=== PATIENT | female | born 1950 | race Caucasian/White ===

== ENCOUNTER 2018-10-05 18:40 | Inpatient (IN) | payer OTHER ==
[~2018-10-05] VITALS: Ht 170.2 cm; Wt 74.7 kg
[~2018-10-05 18:40] MED LIST: AMOCLA875 PO; ASPI325; DOXY100 PO; GLIP2.5ER; LISI5; METF850; ROSU10TA; WARF5
[2018-10-05 19:44] LABS: BASOPHILS ABSOLUTE AUTO 0.03 K/mm3 (0.00-0.23); BASOPHILS PERCENT AUTO 1 % (0-2); EOSINOPHILS ABSOLUTE AUTO 0.01 K/mm3 (0.00-0.68); EOSINOPHILS PERCENT AUTO 0 % (0-6); Hematocrit 40.3 % (33.0-51.0); Hemoglobin 12.5 g/dL (11.5-16.0); IMMATURE GRAN ABSOLUTE AUTO 0.01 K/mm3 (0.00-0.10); IMMATURE GRAN PERCENT AUTO 0 % (0-1); LYMPHOCYTES ABSOLUTE AUTO 1.03 K/mm3 (0.84-5.20); LYMPHOCYTES PERCENT AUTO 16 % (21-46); MONOCYTES ABSOLUTE AUTO 0.51 K/mm3 (0.16-1.47); MONOCYTES PERCENT AUTO 8 % (4-13); Mean Corpuscular HGB 30.3 pg (26.0-34.0); Mean Corpuscular Volume 98 fL (80-100); Mean Platelet Volume 11.4 fL (9.1-12.4); NEUTROPHILS PERCENT AUTO 76 % (41-73); Platelet Count 148 K/mm3 (150-400); RDW Coefficient Variation 15.5 % (11.7-14.2); RDW Standard Deviation 55.3 fL (35.1-46.3); Red Blood Cell Count 4.13 M/mm3 (3.80-5.20); White Blood Cell Count 6.59 K/mm3 (4.00-11.30)
[2018-10-05 20:02] LABS: Albumin, Blood 3.2 g/dL (3.4-5.0); Albumin/Globulin Ratio 0.8 (0.8-1.8); Bilirubin, Total 1.2 mg/dL (0.1-1.0); Bun/Creatinine Ratio 17.1 (12.0-20.0); Calcium, Blood 8.7 mg/dL (8.5-10.1); Creatinine, Blood 1.52 mg/dL (0.40-1.00); Globulin, Blood 4.1 g/dL (2.2-4.0); Potassium, Blood 4.3 mmol/L (3.5-5.5); Total Protein, Blood 7.3 g/dL (6.4-8.2); Troponin I 0.033 ng/mL (0.000-0.040)
[2018-10-05] MEDS ORDERED: ERGO400 (22:51)
[2018-10-05 23:56] LABS: Source, Urine Clean Catch
[2018-10-06 00:04] LABS: Bilirubin, Urine Neg (Neg); Blood, Urine 2+ (Neg); Glucose Qualitative, Urine Neg (Neg); Ketones, Urine Neg (Neg); Leukocyte Esterase, Urine 2+ (Neg); Nitrite, Urine Neg (Neg); Protein, Urine 2+ (Neg); Urobilinogen, Urine 1+ (Normal)
[2018-10-06 00:05] LABS: Appearance, Urine Hazy (Clear); Color, Urine Amber (P-Yellow)
[2018-10-06 00:23] LABS: Bacteria Many /hpf; Red Blood Cells, Urine 0-2 /hpf (0-2); Squamous Epithelial Cells Few /hpf (Few); White Blood Cells, Urine 25-50 /hpf (0-5)
[2018-10-06 05:19] LABS: Anion Gap 10 mmol/L (6-16); Blood Urea Nitrogen 27 mg/dL (8-24); Bun/Creatinine Ratio 17.5 (12.0-20.0); CHOL/HDL RATIO 3.9; CO2, Blood 21 mmol/L (21-32); Calcium, Blood 8.4 mg/dL (8.5-10.1); Chloride, Blood 108 mmol/L (98-108); Cholesterol 133 mg/dL (50-200); Creatinine, Blood 1.54 mg/dL (0.40-1.00); Glomerular Filtration Rate 36 (60-); Glucose, Blood 155 mg/dL (70-99); HDL Cholesterol 34 mg/dL (>39); LDL/HDL RATIO 2.2; Low Density Lipoprotein Chol 73 mg/dL (0-110); Potassium, Blood 4.2 mmol/L (3.5-5.5); Sodium, Blood 139 mmol/L (136-145); Triglycerides 128 mg/dL (30-160); Very Low Density Lipoprot Chol 25 mg/dL (6-32)
--- NOTE | 2018-10-06 06:40 | NUR ---
SHIFT SUMMARY PT A&O X4 T/O SHIFT. PT ADMITTED FROM ER THIS SHIFT. FINE INSPIRATORY CRACKLES BILAT; PT DENIES SOB AT REST; RA. PT DENIES NAUSEA AND CP; TELEMETRY IN PLACE; SR WITH OCC PVC'S PER RECEIVING SUPERVISOR. BLE'S ELEVATED T/O SHIFT. PT ABLE TO SHIFT WEIGHT IN BED. PT UP TO BSC WITH GAIT BELT AND SBA. CALL LIGHT IN REACH; PT DEMONSTRATES USE. WCTM UNTIL REPORT TO DAY SHIFT RN.
--- NOTE | 2018-10-06 17:14 | NUR ---
PATIENT A/OX4, UP WITH FWW AND SBA TO RESTROOM. ECHO DONE TODAY AND REVEALED MULTIPLE BLOOD CLOTS IN THE VENTRICLES AND PATIENT WAS STARTED ON A HEPARIN GTT. PATIENT IS TOLERATING DIET, 1500CC FLUID RESTRICTION. 2-3+ EDEMA TO BLE, LASIX GIVEN IV. 20G IV TO L FA WNL. VSS, LUNGS CLEAR/DIM, ON RA. CALM AND COOPERATIVE WITH CARE, CALLS APPROPRIATELY FOR ASSISTANCE.
--- NOTE | 2018-10-07 04:47 | NUR ---
SHIFT SUMMARY PT HAS SLEPT FAIR DURING THE NIGHT, USES BSC PER SELF. HAS BEEN NPO SINCE MIDNIGHT. OFFERS NO C/O'S. NO ACUTE CHANGES NOTED.
[2018-10-07 05:47] LABS: Bun/Creatinine Ratio 18.3 (12.0-20.0); Calcium, Blood 8.2 mg/dL (8.5-10.1); Creatinine, Blood 1.64 mg/dL (0.40-1.00); Magnesium, Blood 1.8 mg/dL (1.6-2.4)
[2018-10-07 05:50] LABS: Thyroid Stimulating Hormone 3.88 uIU/mL (0.360-4.800)
--- NOTE | 2018-10-07 16:07 | NUR ---
TRANSFER PCU 6 PT TRANSFERED TO PCU S/P ANGIOGRAM. BEDSIDE REPORT RECEIVED FROM CATH TEAM. PT ARRIVED BY W/C ACCOMPANIED BY STAFF. PT ALERT AND COMFORTABLE. RIGHT WRIST BOARD ON. CAP REFILL TO RIGHT FINGERS WNL. PT HELPED WITH 2 ASSIST TO BSC. VOIDED X1. HELPED WITH 2 ASSIST TO BED. PT COMPLAINT WITH PROTECTING RIGHT WRIST. BP CUFF LEFT UE. SPO2 RIGHT INDEX FINGER. SAT WITH PLETH AT 100%RA. TX DENIED DISCOMFORT. [facility]. CONTINUE POT.
--- NOTE | 2018-10-07 17:13 | NUR ---
NOTE PT RESTING QUIETLY. SR. SHE'S TALKED WITH FAMILY AND HAD SEVERAL VISITORS. RIGHT RADIAL SITE CD&I. TR BAND INTACT. UP TO BSC WITH 2 ASSIST. RIGHT WRIST BOARD COMBINED WITH HER LEFT SIDED WEAKNESS MAKES IT CHALLENGING FOR HER TO GET UP SIT TO STAND. SHE IS UNABLE TO PUSH UP WITH HER RIGHT ARM. TAKES 2 PEOPLE TO HELP HER. PT DENIED PAIN OR DISCOMFORT. SHE'S HUNGRY. CONTINUE POT.
[2018-10-08 05:06] LABS: BASOPHILS ABSOLUTE AUTO 0.05 K/mm3 (0.00-0.23); BASOPHILS PERCENT AUTO 1 % (0-2); EOSINOPHILS ABSOLUTE AUTO 0.21 K/mm3 (0.00-0.68); EOSINOPHILS PERCENT AUTO 4 % (0-6); Hematocrit 37.5 % (33.0-51.0); IMMATURE GRAN ABSOLUTE AUTO 0.01 K/mm3 (0.00-0.10); IMMATURE GRAN PERCENT AUTO 0 % (0-1); LYMPHOCYTES ABSOLUTE AUTO 1.24 K/mm3 (0.84-5.20); LYMPHOCYTES PERCENT AUTO 24 % (21-46); MONOCYTES ABSOLUTE AUTO 0.39 K/mm3 (0.16-1.47); MONOCYTES PERCENT AUTO 8 % (4-13); Mean Corpuscular HGB 30.5 pg (26.0-34.0); Mean Platelet Volume 11.5 fL (9.1-12.4); NEUTROPHILS PERCENT AUTO 64 % (41-73); Platelet Count 154 K/mm3 (150-400); RDW Coefficient Variation 15.7 % (11.7-14.2); Red Blood Cell Count 3.94 M/mm3 (3.80-5.20)
[2018-10-08 05:07] LABS: Mean Corpuscular Volume 95 fL (80-100)
--- NOTE | 2018-10-08 05:20 | NUR ---
SHIFT SUMMARY. SEE RT WRIST POST CATH CARE DOCUMENTATION. WNL SITE . DENIES ANY PAIN. NOTED SOME SOB W/ EXERTION. BSC. WHICH SHE WAS UP FREQUENTLY ALL NOC. 2 PERSON ASSIST TO PREVENT ANY USE OF RT ARM/HAND/WRIST FOR SUPPORT.ARM BOARD ON AT ALL TIMES AND FOLLOWED IMMOBILIZATION INSTRUCTIONS WELL. MENTATION CLEAR. EXTREME BLE EDEMA. NO REPORT OF ANY ACUTE DISCOMFORT. SR/SB .LOWEST SEEN HR 55. LUNGS CLEAR AND NO O2 NEEDED WNL SATS.
[2018-10-08 05:34] LABS: Bun/Creatinine Ratio 20.8 (12.0-20.0); Calcium, Blood 8.3 mg/dL (8.5-10.1); Creatinine, Blood 1.54 mg/dL (0.40-1.00); Potassium, Blood 4.1 mmol/L (3.5-5.5)
--- NOTE | 2018-10-08 08:00 | NUR ---
pt laying in bed awake a/ox3, pleasant and cooperative with care, follows commands well, denies any complaints of pain, lungs are clear t/o, resp even and unlabored, no cough noted, hrr, tele in place running sb per monitor, see strip, 3-4+ edema noted to b/l le, cap refill <3sec, vs stable, afebrile, iv sites are clear and patent, infusing heperin gtt as ordered, to left fa iv to rfa is s.l., both c/d/i, geovanni sheppard call light in reach, is a two person assist to bsc, parks and recreation manager in to speak with her and changed her status to dnr. call light in reach.
--- NOTE | 2018-10-08 12:48 | NUR ---
pt resting in bed eating lunch, dieticien in to speak with her, vs stable, no needs at this time. call light in reach.
--- NOTE | 2018-10-08 18:26 | NUR ---
pt sat up on the side of the bed for a few hrs today, needed assistance to get her legs back into bed. no acute changes this shift. call light in reach.
[2018-10-09 04:41] LABS: International Normalized Ratio 1.18
[2018-10-09 04:43] LABS: Bun/Creatinine Ratio 21.3 (12.0-20.0); Calcium, Blood 8.2 mg/dL (8.5-10.1); Creatinine, Blood 1.55 mg/dL (0.40-1.00); Magnesium, Blood 1.8 mg/dL (1.6-2.4); Potassium, Blood 4.6 mmol/L (3.5-5.5)
--- NOTE | 2018-10-09 05:58 | NUR ---
SHIFT SUMMARY PT ALERT AND ORIENTED. VS STABLE. PT DENIES ANY CHEST PAIN OR PRESSURE. O2 SATS HAVE REMAINED ABOVE 92% ON RA. PT DISCUSSES HER WISHED TO ONLY BE MEDICALLY MANAGED AND TO GO HOME. RADIAL ACCESS SITE FREE FROM HEMATOMA, N/T, OR BLEEDING. ARM BAND IN PLACE. PT UP TO THE BSC WITH 1 ASSIST MULTIPLE TIMES THROUGHOUT NIGHT. HEPARIN GTT INF PER PHARMACY ORDERS. PT DENIES A NEED FOR ANYTHING AT THIS ITME. CALL LIGHT IN REACH. WILL CONTINUE TO MONITOR AND REPORT TO ONCOMING RN.
[2018-10-09 15:08] LABS: A/G RATIO 0.8 (0.7-1.7); ALBUMIN 2.6 g/dL (2.9-4.4); ALPHA-1-GLOBULIN 0.3 g/dL (0.0-0.4); ALPHA-2-GLOBULIN 0.6 g/dL (0.4-1.0); BETA GLOBULIN 0.9 g/dL (0.7-1.3); GAMMA GLOBULIN 1.3 g/dL (0.4-1.8); GLOBULIN, TOTAL 3.1 g/dL (2.2-3.9); M-SPIKE Not Observed g/dL (Not Observed); PROTEIN, TOTAL, SERUM 5.7 g/dL (6.0-8.5)
--- NOTE | 2018-10-09 18:08 | NUR ---
SHIFT SUMMARY PT RESTING IN BED THROUGHOUT THE DAY. VSS. ALERT AND ORIENTED X3. DENIES PAIN THE MAJORITY OF THE DAY, C/O CHEST PAIN FOR A SHORT PERIOD OF TIME, DID NOT NOTIFY RN UNTIL AN HOUR LATER. DR. NEUMANN NOTIFIED OF CP, ORDERS RECEIVED FOR TROPONIN I NOW AND IN AM. EDUCATED PT ON THE NEED TO NOTIFY STAFF RIGHT AWAY IF SHE HAS CHEST PAIN AGAIN, PT VERBALIZES UNDERSTANDING. LUNG SOUNDS CLEAR, SINUS BRADYCARDIA / NSR RATE 50s-60s PER TELE. 2+ PITTING EDEMA TO BLE, PER PT, SWELLING TO LEGS IS IMPROVING. WILL CONTINUE TO MONITOR.
--- NOTE | 2018-10-09 22:11 | NUR ---
ASSUMED CARE OF PATIENT AT APPROXIMATELY 1905 FROM ANSON Erickson RN. PATIENT ALERT AND ORIENTED X4. REPORTED THAT PATIENT IS ONE ASSIST TO BEC; REPORTED THAT SHE CALLS APPROPRIATELY. PATIENT DENIES CP/PRESSURE, PAIN ELSEWHERE, NAUSEA OR DIZZINESS. NSR W/ PVC'S ON TELE; OXYGEN SATURATION ABOVE 90% ON ROOM AIR. RIGHT RADIAL ANGIO SITE WNL; WOUNDS NOTED ON FEET; +2-3 EDEMA NOTED ON BLE. HEPARIN INFUSING PER ORDER. PATIENT ATTEMPTED TO AMBULATE INDEPENDENTLY; REPORTED THAT SHE DOESNT UNDERSTAND WHY SHE NEEDS ASSISTANCE WHEN SHE GETS UP BECAUSE SHE GETS UP AT HOME BY HERSELF; REPORTS FRUSTRATION; AGREED TO CALL BEFORE AMBULATION; REPORTED SHE "WILL STAND UP EVERY FIVE MINUTES" TO TRIGGER ALARM; THEN REPORTED THAT SHE GETS IRRITABLE AFTER BEING IN THE HOSPITAL THIS LONG. PATIENT IS STEADY ON FEET; STOOD BEDSIDE WHILE THIS RN CHANGED THE BEDDING. PATIENT CURRENTLY RESTING IN BED; CALL LIGHT IN REACH; BED IN LOWEST POSISTION; BED ALARM ON; WILL CONTINUE TO MONITOR AND ASSESS UNTIL END OF SHIFT.
[2018-10-10 04:33] LABS: International Normalized Ratio 1.12; Prothrombin Time Results 11.5 Sec (9.7-11.5)
[2018-10-10 04:36] LABS: Bun/Creatinine Ratio 25.4 (12.0-20.0); Calcium, Blood 8.2 mg/dL (8.5-10.1); Creatinine, Blood 1.42 mg/dL (0.40-1.00); Potassium, Blood 4.4 mmol/L (3.5-5.5); Troponin I 0.019 ng/mL (0.000-0.040)
[2018-10-10 04:37] LABS: Bun/Creatinine Ratio 26.1 (12.0-20.0); Calcium, Blood 8.3 mg/dL (8.5-10.1); Creatinine, Blood 1.42 mg/dL (0.40-1.00); Potassium, Blood 4.4 mmol/L (3.5-5.5)
--- NOTE | 2018-10-10 06:11 | NUR ---
PATIENT CALLED APPROPRIATELY T/O REST OF NIGHT. ATTENDS PLACED; INCONTINENT OF STOOL SMEARS. PATIENT STOOD FOR WEIGHT THIS MORNING. VSS. NO ACUTE CHANGES TO REPORT. WILL CONTINUE TO MONITOR AND ASSESS UNTIL END OF SHIFT.
--- NOTE | 2018-10-10 10:45 | NUR ---
Assumed Care: Assumed care of pt at approx 0700. VSS. In no apparent sign of distress. Pt is A&Ox4. Calls appropriately and repositions self. Denies any pain. See shift assessment for detailed assessment. Dr. Coleman at bedside this AM and states that she will be adjusting some of her BP meds. Dr. Coleman discussed with patient her options to follow-up as outpatient in [place] for bypass surgery. Verified heparin gtt at bedside with demetrice lin RN this AM. Pt currently resting in bed with call light within reach. Denies any further questions, complaints or requests at this time. Will continue to monitor.
[2018-10-10 12:09] LABS: M-SPIKE, % Not Observed % (Not Observed)
--- NOTE | 2018-10-10 19:19 | NUR ---
Shift Summary No acute changes since initial shift assessment. VSS. In no apparent sign of distress. Pt is A&Ox4. Calls appropriately. Denies any pain. Pt denies any acute complaints or events t/o the shift. No acute changes on tele. Pt started on coumadin tonight. No adjustments required on heparin gtt today per pharmacy. Pt currently resting in bed with call light within reach. Denies any further questions, complaints or requests at this time. Will continue to monitor until report is given to noc shift RN.
--- NOTE | 2018-10-10 23:15 | NUR ---
ASSUMED CARE OF PATIENT AT APPROXIMATELY 1905 FROM ERVIN Gibbs RN. PATIENT ALERT AND ORIENTED X4. PATIENT IS SBA TO BEDSIDE COMMODE; CALLS APPROPRIATELY. PATIENT DENIES CP/PRESSURE, PAIN ELSEWHERE, NAUSEA OR DIZZINESS. NSR W/ PVC'S ON TELE; OXYGEN SATURATION ABOVE 90% ON ROOM AIR. RIGHT RADIAL ANGIO SITE WNL; WOUNDS NOTED ON FEET; EDEMA NOTED ON BLE; IMPROVING. HEPARIN INFUSING PER ORDER. PATIENT CURRENTLY RESTING IN BED; CALL LIGHT IN REACH; BED IN LOWEST POSISTION; BED ALARM ON; WILL CONTINUE TO MONITOR AND ASSESS UNTIL END OF SHIFT.
[2018-10-11 04:18] LABS: International Normalized Ratio 1.36; Prothrombin Time Results 13.8 Sec (9.7-11.5)
[2018-10-11 04:24] LABS: Bun/Creatinine Ratio 26.6 (12.0-20.0); Calcium, Blood 8.2 mg/dL (8.5-10.1); Creatinine, Blood 1.39 mg/dL (0.40-1.00); Magnesium, Blood 1.9 mg/dL (1.6-2.4); Potassium, Blood 4.2 mmol/L (3.5-5.5)
--- NOTE | 2018-10-11 06:27 | NUR ---
NO ACUTE CHANGES TO REPORT. PATIENT SLEPT ABOUT FOUR HOURS LAST NIGHT. VSS. WILL CONTINUE TO MONITOR AND ASSESS UNTIL END OF SHIFT.
--- NOTE | 2018-10-11 18:26 | NUR ---
Shift Summary No acute changes since initial shift assessment. VSS t/o shift. Denies any pain or any complaints t/o the shift. No acute events on tele. Pt has remained on RA. Pt currently resting in bed with call light within reach. Denies any furhter questions, complaints or requests at this time. Will continue to monitor until report is given to destinee TERAN.
[2018-10-12 04:39] LABS: International Normalized Ratio 1.81
[2018-10-12 04:45] LABS: Bun/Creatinine Ratio 26.2 (12.0-20.0); Calcium, Blood 8.5 mg/dL (8.5-10.1); Creatinine, Blood 1.45 mg/dL (0.40-1.00); Magnesium, Blood 2.1 mg/dL (1.6-2.4); Potassium, Blood 4.3 mmol/L (3.5-5.5)
--- NOTE | 2018-10-12 07:42 | NUR ---
SHIFT SUMMARY PATIENT VERY PLEASENT AND COOPERATIVE THROUGHOUT THE NIGHT. PATIENT DENIED ANY PAIN OR DISCOMFORT LAST NIGHT. HEPARIN GTT RUNNING PER ORDERS. PT APPEARED TO SLEEP WELL THROUGHOUT THE NIGHT. VITAL SIGNS CHARTED. REPORT GIVEN TO ONCOMING RN.
--- NOTE | 2018-10-12 17:25 | NUR ---
END OF SHIFT; PT HAD NO ACUTE CHANGES IN CONDITION NOTED DURING DAY. SHE HAS PLEASANT AFFECT. DENIES ANY CHEST PAIN OR DISCOMFORT. PT ABLE TO TRANSFER HERSELF TO AND FROM COMMODE WITHOUT ASSIST. SHE USES HER CALL LIGHT APPROPRIATELY TO CALL FOR ASSISTANCE WHEN NEEDED. SHE REMAINS ON A HEPARIN DRIP AT 15UNITS/KG/HR OR 24 MLS. WILL CONTINUE TO MONITOR THIS PATIENT UNTIL REPORT AND HAND OFF TO NOC SHIFT RN.
--- NOTE | 2018-10-12 23:40 | NUR ---
EVENT NOTE: AT APPROX 2232 PATIENT HAD A SIX BEAT RUN OF VTACH. PATIENT APPEARED ASYMPTOMATIC WHEN STAFF CHECKED ON PATIENT. RHYTHM STRIP PRINTED AND PLACED IN CHART.
[2018-10-13 04:25] LABS: International Normalized Ratio 2.26; Prothrombin Time Results 22.2 Sec (9.7-11.5)
[2018-10-13 04:45] LABS: Bun/Creatinine Ratio 29.2 (12.0-20.0); Calcium, Blood 8.4 mg/dL (8.5-10.1); Creatinine, Blood 1.44 mg/dL (0.40-1.00); Potassium, Blood 4.6 mmol/L (3.5-5.5)
--- NOTE | 2018-10-13 06:53 | NUR ---
SHIFT SUMMARY: PATIENT PLEASENT AND COOPERATIVE THROUGHOUT THE NIGHT. PATIENT APPEARED TO SLEEP WELL. HEPARIN GTT RUNNING PER ORDERS. PATIENT HAS BEEN ABLE TO TRANSFER SELF FROM THE BED TO THE BSC AND BACK WITHOUT ASSISTANCE. PATIENT STATES SHE THINKS THE SWELLING IN HER LEGS IS "SO MUCH BETTER" THAN WHEN SHE GOT HERE. VITAL SIGNS CHARTED. WILL CONTINUE TO MONITOR PATIENT AND REPORT TO ONCOMING RN.
--- NOTE | 2018-10-13 16:09 | NUR ---
PT AMBULATES AROUND PCU AND ICU AREA WITH MINIMAL DISCOMFORT. RETURNS TO ROOM EXPRESSES THAT SHE IS FEELING TIRED AFTER HER WALK BUT LOOKING FORWARD TO WALKING MORE OFTEN. HEPARIN DRIP IS STOPPED THIS AFTERNOON PER PHARMACY ORDER. IV IS NOW SALINE LOCKED. PT IS ABLE TO TRANSFER TO AND FROM BEDSIDE COMMODE FOR HER CONVENIENCE. SHE HAS GOOD APPETITE DURING DAY AND EXPRESSES NO SOB HAS PLEASANT AFFECT. PER EUFEMIA SHE IS LOOKING FORWARD TO GOING HOME TOMORROW.
[2018-10-14 04:40] LABS: Bun/Creatinine Ratio 31.5 (12.0-20.0); Calcium, Blood 8.5 mg/dL (8.5-10.1); Creatinine, Blood 1.49 mg/dL (0.40-1.00); International Normalized Ratio 2.38; Magnesium, Blood 2.1 mg/dL (1.6-2.4); Potassium, Blood 4.5 mmol/L (3.5-5.5); Prothrombin Time Results 23.3 Sec (9.7-11.5)
--- NOTE | 2018-10-14 05:31 | NUR ---
SHIFT SUMMARY PATIENT PLEASENT AND COOPERATIVE THROUGHOUT THE NIGHT. PATIENT APPEARED TO NAP WELL ON AND OFF THROUGHOUT THE NIGHT. NO COMPLAINTS OF PAIN OR DISCOMFORT NOTED LAST NIGHT. VITAL SIGNS CHARTED. WILL CONTINUE TO MONITOR PATIENT AND REPORT TO ONCOMING RN.
[2018-10-14] MEDS ORDERED: ATOR40TA PO (10:52)
[2018-10-14] MEDS ORDERED: ASPI81CH PO (10:52)
[2018-10-14] MEDS ORDERED: LISI5 PO (10:53)
[2018-10-14] MEDS ORDERED: Micro-K10 MEQ PO (10:54)
[2018-10-14] MEDS ORDERED: METO25ER PO (10:54)
[2018-10-14] MEDS ORDERED: TORSE20 PO (10:56)
[2018-10-14] MEDS ORDERED: WARF5 PO (10:57)
--- NOTE | 2018-10-14 12:05 | NUR ---
Shift Summary Pt discharged at 1200. VSS. In no apparent sign of distress. Pt denied any acute events or complaints t/o the night and at time of discharge. See shift assessment for detailed assessment. Pt discharged via wheelchair and accompanied by escort services and son with all belongings in hand and discharge instructions/prescriptions.
== END 2018-10-14 12:01 | disposition home or self-care (01) | DRG 286 ==
LOC: ER 18:40 → PCU 21:28 → MEDS 21:28 → PCU 10-07 14:58
PROVIDERS: Emergency Medicine; Hospitalist; Internal Medicine; Internal Medicine Cardiovascular Disease; ADMIT Internal Medicine
PROC: B2111ZZ Fluoroscopy of Multiple Coronary Arteries using Low Osmolar Contrast (ICD-10-PCS; principal; 2018-10-07)
DX: I13.0 Hypertensive heart and chronic kidney disease with heart failure and stage 1 through stage 4 chronic kidney disease, or unspecified chronic kidney disease (principal); I50.21 Acute systolic (congestive) heart failure; Q21.1 Atrial septal defect; I69.354 Hemiplegia and hemiparesis following cerebral infarction affecting left non-dominant side; N18.4 Chronic kidney disease, stage 4 (severe); E78.5 Hyperlipidemia, unspecified; Z89.422 Acquired absence of other left toe(s); Z87.891 Personal history of nicotine dependence; I51.3 Intracardiac thrombosis, not elsewhere classified; I25.10 Atherosclerotic heart disease of native coronary artery without angina pectoris; E11.22 Type 2 diabetes mellitus with diabetic chronic kidney disease; Z66 Do not resuscitate; R19.7 Diarrhea, unspecified; Z79.82 Long term (current) use of aspirin; Z79.01 Long term (current) use of anticoagulants
CPT/HCPCS: 36415; 71046; 80048; 80053; 80061; 81001; 82728; 83036; 83735; 83880; 84156; 84165; 84166; 84443; 84484; 85025; 85049; 85347; 85610; 85730; 87077; 87086; 87186; 93005; 93010; 93306; 93454; 96374; 97161; 97165; 97530; 98960; 99152; 99153; 99285-25; C1769; C1894; G8987; G8988; G8989; J1644; J1650; J1940; J2250; J3475; J7030; Q9967

== ENCOUNTER 2019-02-12 08:43 | Inpatient (IN) | payer SELFPAY ==
[~2019-02-12] VITALS: Ht 170.2 cm; Wt 65.4 kg
[~2019-02-12 08:43] MED LIST changes: +ASPI81CH PO; +ATOR40TA PO; +ERGO400; +LISI5 PO; +METO25ER PO; +Micro-K10 MEQ PO; +TORSE20 PO; +WARF5 PO
[2019-02-12 09:35] LABS: Hematocrit 36.1 % (33.0-51.0); Hemoglobin 11.1 g/dL (11.5-16.0); Mean Corpuscular HGB 31.4 pg (26.0-34.0); Mean Corpuscular HGB Conc 30.7 g/dL (31.5-36.5); Mean Corpuscular Volume 102 fL (80-100); Mean Platelet Volume 10.9 fL (9.1-12.4); Platelet Count 177 K/mm3 (150-400); RDW Coefficient Variation 14.2 % (11.7-14.2); RDW Standard Deviation 53.4 fL (35.1-46.3); Red Blood Cell Count 3.53 M/mm3 (3.80-5.20); White Blood Cell Count 13.92 K/mm3 (4.00-11.30)
[2019-02-12 09:51] LABS: International Normalized Ratio 1.51; Prothrombin Time Results 15.4 Sec (9.7-11.5)
[2019-02-12 09:56] LABS: Alanine Aminotransfer (ALT/SGP 33 U/L (12-78); Albumin, Blood 2.9 g/dL (3.4-5.0); Albumin/Globulin Ratio 0.7 (0.8-1.8); Alk Phos 109 U/L (50-136); Anion Gap 18 mmol/L (6-16); Aspartate Aminotrans (AST/SGOT 29 U/L (12-37); Bilirubin, Total 1.7 mg/dL (0.1-1.0); Blood Urea Nitrogen 70 mg/dL (8-24); CO2, Blood 16 mmol/L (21-32); Calcium, Blood 9.4 mg/dL (8.5-10.1); Chloride, Blood 102 mmol/L (98-108); Creatinine, Blood 2.92 mg/dL (0.40-1.00); Globulin, Blood 4.2 g/dL (2.2-4.0); Glomerular Filtration Rate 17 (60-); Glucose, Blood 109 mg/dL (70-99); Potassium, Blood 4.9 mmol/L (3.5-5.5); Sodium, Blood 136 mmol/L (136-145); Total Protein, Blood 7.1 g/dL (6.4-8.2); Troponin I <0.015 ng/mL (0.000-0.040)
[2019-02-12 10:08] LABS: BAND PERCENT MAN 15 % (0-8); BASOPHILS PERCENT MAN 0 % (0-2); EOSINOPHILS ABSOLUTE MAN 0.13 K/mm3 (0.00-0.68); EOSINOPHILS PERCENT MAN 1 % (0-6); LYMPHOCYTES ABSOLUTE MAN 0.27 K/mm3 (0.84-5.20); LYMPHOCYTES PERCENT MAN 2 % (21-46); METAMYELOCYTE ABSOLUTE MAN 0.27 K/mm3 (0.00-0.00); METAMYELOCYTE PERCENT MAN 2 % (0-0); MONOCYTES ABSOLUTE MAN 0.69 K/mm3 (0.16-1.47); MONOCYTES PERCENT MAN 5 % (4-13); MYELOCYTE ABSOLUTE MAN 0.13 K/mm3 (0.00-0.00); MYELOCYTE PERCENT MAN 1 % (0-0); NEUTROPHILS ABSOLUTE MAN 12.38 K/mm3 (1.96-9.15); SEG NEUTROPHILS PERCENT MAN 74 % (41-73); TOTAL CELLS COUNTED 100
--- NOTE | 2019-02-12 11:04 | NUR ---
"DAY SURGERY | PATIENT TO OR This RN and Mallika RN prepared patient for surgery. Levophed started by ED nurse, titrated 20 mcg. 2 L NS given by ER. LR started to pressure bag wide open. Dr. Arevalo spoke with patient, consent signed. Blood consent obtained, patient verbalized consent. Consent obtained for anesthesia by verbal consent, Dr. Moody in room. Consent for student to be in room verbalized. Patient taken emergently to OR [address] Moody and Mallika TERAN."
[2019-02-12 11:14] LABS: PCO2 Arterial 36.4 mmHg (35-45)
[2019-02-12 11:17] LABS: pH Blood Arterial 7.01 (7.35-7.45)
--- NOTE | 2019-02-12 11:22 | NUR ---
02/12/19 1122 Dayday [place] PATIENT ARRIVED FROM ER FOR EMERGENT AKA. IV INFUSING LEVOPHED. PATIENTS UNDERWARE CUT OFF AND DISPOSED OF. ART LINE STARTED PER DR. STALLINGS AND 18 G PLACED IN RIGHT UPPER ARM. SEE ANESTHESIA RECORD FOR MEDICATIONS. PATIENT RECEIVED PRE-OP ANTIBIOTICS IN ER.
[2019-02-12 13:02] LABS: Hematocrit 33.9 % (33.0-51.0); Hemoglobin 10.4 g/dL (11.5-16.0); Mean Corpuscular HGB 31.8 pg (26.0-34.0); Mean Corpuscular HGB Conc 30.7 g/dL (31.5-36.5); Mean Corpuscular Volume 104 fL (80-100); Mean Platelet Volume 11.1 fL (9.1-12.4); Platelet Count 212 K/mm3 (150-400); RDW Coefficient Variation 14.1 % (11.7-14.2); Red Blood Cell Count 3.27 M/mm3 (3.80-5.20)
[2019-02-12 13:29] LABS: Albumin, Blood 2.3 g/dL (3.4-5.0); Albumin/Globulin Ratio 0.6 (0.8-1.8); Bilirubin, Total 1.8 mg/dL (0.1-1.0); Bun/Creatinine Ratio 24.7 (12.0-20.0); Calcium, Blood 8.1 mg/dL (8.5-10.1); Creatinine, Blood 2.55 mg/dL (0.40-1.00); Globulin, Blood 3.7 g/dL (2.2-4.0); Magnesium, Blood 1.9 mg/dL (1.6-2.4); Phosphorus, Blood 4.2 mg/dL (2.5-4.9); Potassium, Blood 4.7 mmol/L (3.5-5.5); Troponin I 0.023 ng/mL (0.000-0.040)
[2019-02-12 13:59] LABS: BAND PERCENT MAN 16 % (0-8); BASOPHILS PERCENT MAN 1 % (0-2); EOSINOPHILS PERCENT MAN 1 % (0-6); METAMYELOCYTE ABSOLUTE MAN 1.03 K/mm3 (0.00-0.00); METAMYELOCYTE PERCENT MAN 5 % (0-0); MONOCYTES PERCENT MAN 1 % (4-13); NEUTROPHILS ABSOLUTE MAN 19.04 K/mm3 (1.96-9.15); SEG NEUTROPHILS PERCENT MAN 76 % (41-73); TOTAL CELLS COUNTED 100
[2019-02-12 15:34] LABS: PCO2 Arterial 25.3 mmHg (35-45)
[2019-02-12 15:35] LABS: pH Blood Arterial 7.24 (7.35-7.45)
--- NOTE | 2019-02-12 17:26 | NUR ---
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 PT IS INTUBATED AND VENTED AT THIS TIME. R FOOT LEG BKA HAS A WOUND VAC WITH VERY GOOD SEAL. R LEG BKA TISSUE AT THE INNER UPPER THIGH HAS SLIGHT MOTTLING NOTED. PT IS NOT RESPONSIVE. 1250-PT WAS MEDICATED WITH 25MCG OF FENTANYL FOR CENTRAL LINE PLACEMENT. PLACED OG TUBE AFTER CENTRAL LINE PLACED. 1315-PT IS HYPOTENSIVE. STARTED LEVOPHED DRIP @ 5 MCG/KG/MIN. 1330-PT STARTED WAKING UP AT THIS TIME. PT OPENS EYES TO VOICE. PT IS SOMEWHAT FOLLOWING COMMANDS. 1356-PT IS STARTED TO BECOME HYPOTENSIVE AGAIN, INCREASED LEVOPHED DRIP TO 10MCG/KG/MIN. 1430-PT'S FAMILY AT BEDSIDE. UPDATED THEM OF PT'S STATUS. 1525- INCREASED LEVOPHED DRIP TO 15 MCG/KG/MIN. DECREASED BP AGAIN. PT IS WAKING UP SLIGHTLY DESPITE LITTLE DOSE TO PROPOFOL WHICH IS STILL @ 5 MCG/KG/MIN. PT IS DESATTING AT TIMES. CURRENT FIO2 @ 80% 1535-NOTED INCREASED MOTTLE AT POST BKA STUMP. DR. MONIQUE CAME BY TO SEE PT. SHOWED HIM THE INCREASED MOTTLING OF THE TISSUE. HE CALLED DR. AREVALO REGARDING THIS. 1600-INCREASED LEVOPHED DRIP TO 20 MCG/KG/MIN AT THIS TIME. SINCE PT'S BLOOD PRESSURE IS DECLINING. DR. AREVALO WITH DR. MONIQUE NOW AT BEDSIDE. PT IS SOMEWHAT AWAKE, FOLLOWING COMMANDS. NODDING/SHAKING HEAD TO YES/NO QUESTION. DR. AREVALO EXPLAINED TO PT'S SON AND EX- REGARDING PT'S CONDITION. PT IS MOSTLY AWAKE DURING THE CONVERSATION. 1630-PT WAS WIDE AWAKE TO SAY THAT SHE WANTS TO BE DNR. CONTINUE WITH THE CURRENT TREATMENT. 1655-PT STATED SHE IS HURTING AT HER R LEG STUMP. MEDICATED PT WITH PAIN. 1700-PT IS SLEEPING AT THIS TIME. STILL ON LEVOPHED @ 20MCG/KG/MIN. PROPOFOL STILL @ 5 MCG/KG/MIN. PT SEEMS TO BE COMFORTABLE AT THIS TIME.
[2019-02-12 17:29] LABS: PO2 Arterial >500 mmHg (80-100)
--- NOTE | 2019-02-12 19:15 | NUR ---
ASSUMPTION OF CARE Pt is intubated and mildly sedated, opening eyes spontaneously and following commands. Pt denies pain, propofol increased at this time to make pt more comfortable (See flowsheet). Vent is set to AC 24/450/60%/5, O2 at 100%, HR 110-120's SIT, BP stable. Central line to Rt IJ infusing epinephrine, levophed, propofol, vasopressin, heparin, and LR, see flowsheet for rates. Heparin rate/dose weight verified with EMAR and second RN. Arterial line to left radial, site within normal limits, distal extremity cool, slightly cyanotic and slow cap refill. Site and extremity assessed with arsalan RN, no significant changes to extremity noted. Will continue to monitor arterial site and limb closely. Hamm catheter in place, no urine output at this time, Dr. Isabel aware. Rt AKA stump with woundvac in place, dressing sealed and intact, continuous suction set to 125mmHg, scant sanguinous drainage in tube. Purple nonblanching discoloration noted to anterior distal stump skin, margins outlined by arsalan TERAN, Dr Arevalo and Dr Herrera aware. Diffuse sores noted to Lt leg and Rt arm (see photos). Will continue to monitor vital signs closely, medications will be titrated appropriately.
--- NOTE | 2019-02-13 00:27 | NUR ---
POSITIVE BLOOD CULTURE Dr Isabel notified of positive blood cultures, gram positive with cocci in chains, BP 90-100's systolic with MAPs 65-70, urine output 10-15mL so far this shift with levophed running at 20mcg/min and epinephrine at 4mcg/kg/min. No new orders at this time.
[2019-02-13 04:45] LABS: Hematocrit 37.8 % (33.0-51.0); Mean Corpuscular HGB 31.6 pg (26.0-34.0); Mean Corpuscular HGB Conc 29.1 g/dL (31.5-36.5); Mean Platelet Volume 10.9 fL (9.1-12.4); NRBC ABSOLUTE 0.03 K/mm3 (0.00-0.02); NRBC Auto 0.1 /100 WBC (0.0-0.2); Platelet Count 195 K/mm3 (150-400); RDW Coefficient Variation 14.6 % (11.7-14.2); RDW Standard Deviation 58.1 fL (35.1-46.3); Red Blood Cell Count 3.48 M/mm3 (3.80-5.20); White Blood Cell Count 36.81 K/mm3 (4.00-11.30)
[2019-02-13 04:57] LABS: Mean Corpuscular Volume 109 fL (80-100)
[2019-02-13 05:01] LABS: Vancomycin, Random 14.7 ug/mL
[2019-02-13 05:05] LABS: Troponin I 0.329 ng/mL (0.000-0.040)
[2019-02-13 05:10] LABS: BAND PERCENT MAN 17 % (0-8); BASOPHILS PERCENT MAN 0 % (0-2); EOSINOPHILS PERCENT MAN 0 % (0-6); LYMPHOCYTES ABSOLUTE MAN 0.36 K/mm3 (0.84-5.20); LYMPHOCYTES PERCENT MAN 1 % (21-46); MONOCYTES ABSOLUTE MAN 1.47 K/mm3 (0.16-1.47); MONOCYTES PERCENT MAN 4 % (4-13); MYELOCYTE ABSOLUTE MAN 0.36 K/mm3 (0.00-0.00); MYELOCYTE PERCENT MAN 1 % (0-0); SEG NEUTROPHILS PERCENT MAN 77 % (41-73); TOTAL CELLS COUNTED 100
[2019-02-13 05:25] LABS: Bun/Creatinine Ratio 23.4 (12.0-20.0); Calcium, Blood 7.8 mg/dL (8.5-10.1); Creatinine, Blood 2.86 mg/dL (0.40-1.00); Potassium, Blood 6.1 mmol/L (3.5-5.5)
--- NOTE | 2019-02-13 06:34 | NUR ---
Shift Summary: Pt remains intubated and sedated, vent set to 24/450/25%/5, O2 100%, HR 110-120's SIT, BP stable at 90-100's systolic and MAP's 65-70's. Pt rousable and follows commands with decreased sedation. Central line in place at Rt IJ, infusing propofol, vancomycin, NS, levophed, epinephrine, vasopressin, bicarb, heparin, and calcium gluconate. Hamm catheter in place, 25mL of urine output for this shift. Woundvac sealed and intact to Rt AKA stump, draining scant serosanguineous fluid. Purple discoloration to distal stump increased laterally, with no proximal advancements, new margins outlined. Upper extremities are cool and cyanotic with weak radial pulses. Call placed to Dr Isabel @ approx 0530 regarding morning labs/I&O: Lactic- 12.3 Potassium- 6.1 CO2- 8 Troponin- 0.329 WBC- 36.81 (See critical lab value notify) New orders of IV insulin, 1 amp D50, 1L NS, IV Bicarb, and Calcium gluconate initiated.
[2019-02-13 07:23] LABS: PCO2 Arterial 22.4 mmHg (35-45); PO2 Arterial 135 mmHg (80-100); pH Blood Arterial 7.06 (7.35-7.45)
--- NOTE | 2019-02-13 10:30 | NUR ---
0700-ASSUMED CARE OF PT. PT IS INTUBATED AND SEDATED WITH PROPOFOL AT 20MCG/KGMIN. PT IS ON LEVOPHED @ 20MCG/KG/MIN. VASOPRESSIN @ 0.04 UNITS/HR, EPINEPHRINE DRIP @ 4MCG/KG/MIN. R BKA STUMP MOTTLING HAS STABILIZED. LEFT LEG IS MORE MOTTLED AND SO ARE PT'S FINGERS. 0750-DR. GRECO WAS CALLED REGARDING PT'S BLOOD GAS RESULTS. ORDERS RECEIVED. 0800-EPI DRIP @ 10MCG/KG/MIN AT THIS TIME. 1030-PT SEEN BY DR. GRECO. SHE WAS ABLE TO TALK TO PATIENT'S SON REGARDING PT'S PROGNOSIS.
--- NOTE | 2019-02-13 11:23 | NUR ---
Clinical Visit/Family Contact Visit: Reviewed chart, notes, labs, meds. Spoke to Padmini Mcgowan, nurse. She states that there are more family members coming this afternoon. It is expected that family will make the decision to move towards extubation and comfort care. Prognosis is poor. Zeus, son, is at bedside and verbalizes understanding of poor prognosis. He states that pt would not have liked the vent and would not want life saving measures at this point due to lack of quality of life. Zeus reports that he will be discussing end of life care with family this afternoon when they arrive. He is aware that he is the decision maker. Will return to room when family arrives to discuss plan and next steps. Pt will likely demise in the hospital post extubation, is the general understanding of this situation as it has been presented.
[2019-02-13 11:48] LABS: PCO2 Arterial 20.2 mmHg (35-45); PO2 Arterial 157 mmHg (80-100)
[2019-02-13 11:50] LABS: pH Blood Arterial 7.14 (7.35-7.45)
--- NOTE | 2019-02-13 12:00 | NUR ---
PT WAS SEEN BY Nickolas AREVALO AND DR. MONIQUE. UPDATED THEM OF PT'S STATUS. THEY BOTH LOOKED UP PT'S LEFT LEG WHICH IS VERY MOTTLED. THEY EXPLAINED THE PROGNOSIS OF THE PT'S SON STATED [place]. HE STATED NO MORE SURGERY PER PATIENT'S WISHES.
--- NOTE | 2019-02-13 13:45 | NUR ---
PT'S FAMLY AT BEDSIDE, PT'S FAMILY HAS DECIDED PT TO MAKE PT COMFORT CARE. DR. GRECO WAS NOTIFIED REGARDING PT'S FAMILY WISHES.
--- NOTE | 2019-02-13 13:54 | NUR ---
Family Meeting Visit: Met with family in room. After some discussion, the decision was made by Zeus to withdraw life saving measures. Body donation was discussed: pt would likely want her body donated, per pt's brother. Padmini reviewed order of events with family. They verbalize understanding of directions. No other concerns, program aide notified and family requested visit for prayer.
--- NOTE | 2019-02-13 14:26 | NUR ---
1419- PT WAS EXTUBATED AT THIS TIME.
--- NOTE | 2019-02-13 14:39 | NUR ---
Withdrawal of Life Support: Pt was extubated after she was placed on comfort care. Extubation went well, pt premedicated for pain and anxiety. She is currently resting comfortably in bed with family surrounding her. Padmini educated on end of life symptoms and reviewed medication. Padmini instructed on moving pt to quiet room if needed. Instructed family to gather and tell stories, converse respectfully, say their goodbyes and tell her that they love her. Instructed on playing pt's favorite music, maintaining comfortable environment, and providing loving touch; depending on family comfort. The sisters present are current caregivers and have seen pt's passing before. The son has not been exposed to end of life, however, he verbalizes understanding of instruction. Provided family with chairs for all members present, encourged to interact. Door and curtain shut for privacy. Pt appears comfortable. She does not show symptoms or signs of pain or anxiety. Some secretions can be heard, but does not appear to bother the pt. Pt repositioned. Will remain available.
--- NOTE | 2019-02-13 14:41 | NUR ---
Spiritual care visit conducted. I was notified by Mony Hobson that patient's family was requesting a kettle skimmer because patient was going to be extubated soon. The extubation process made not begun when I entered the room and so I spent time with the family having them share memories that were meaningful or were examples of patient's personality. There was much laughter and tears. I also provided prayer for the patient and for the family. I was present for the extubation and providing a calming presence. When the extubation was complete and the patient was cleaned and all wires and tubes removed I provided another prayer. Family voiced appreciation for my visit. I remain available to family.
--- NOTE | 2019-02-13 15:28 | NUR ---
Nickolas COSTA & DR. GRECO WAS NOTIFIED REGARDING PT'S TIME OF EXPIRATION. TRIED TO CALL DR AREVALO AND DR. MONIQUE TO LET THEM KNOW PT HAS , NO ANSWER. [employer] WAS ALSO CONTACTED. PT HAS BEEN DENIED FOR ORGANS, TISSUE & EYES.
--- NOTE | 2019-02-13 15:47 | NUR ---
Spiritual care visit conducted. I met with family of patient shortly after time of . They all seemed to be grieving appropriately but appreciated further emotional support. We discussed the memorial plans, their belief that patient is with the Lord and no longer suffering and about the need for some family members to drive home tonight. I also gathered information about the preferred home to car pick up driver the body. Family thanked me for the care given during a difficult couple of days.
== END 2019-02-13 15:07 | DRG 853 ==
LOC: ER 08:43 → ICUE 10:10 → ICUW 10:10 → ICUE 11:45
PROVIDERS: Emergency Medicine; Internal Medicine Critical Care Medicine; Internal Medicine Pulmonary Disease; Orthopaedic Surgery; ADMIT Internal Medicine
PROC: 5A1935Z Respiratory Ventilation, Less than 24 Consecutive Hours (ICD-10-PCS; 2019-02-12)
PROC: 0BH17EZ Insertion of Endotracheal Airway into Trachea, Via Natural or Artificial Opening (ICD-10-PCS; 2019-02-12)
PROC: 5A1935Z Respiratory Ventilation, Less than 24 Consecutive Hours (ICD-10-PCS; 2019-02-12)
PROC: 0Y6C0Z1 Detachment at Right Upper Leg, High, Open Approach (ICD-10-PCS; principal; 2019-02-12 10:30)
DX: A40.0 Sepsis due to streptococcus, group A (principal); R65.21 Severe sepsis with septic shock; M72.6 Necrotizing fasciitis; A48.3 Toxic shock syndrome; N17.9 Acute kidney failure, unspecified; I13.0 Hypertensive heart and chronic kidney disease with heart failure and stage 1 through stage 4 chronic kidney disease, or unspecified chronic kidney disease; I50.22 Chronic systolic (congestive) heart failure; Q21.1 Atrial septal defect; E87.2 Acidosis; Z51.5 Encounter for palliative care; E11.22 Type 2 diabetes mellitus with diabetic chronic kidney disease; N18.3 Chronic kidney disease, stage 3 (moderate); I25.10 Atherosclerotic heart disease of native coronary artery without angina pectoris; I51.3 Intracardiac thrombosis, not elsewhere classified; I73.9 Peripheral vascular disease, unspecified; E87.5 Hyperkalemia; T88.4XXA Failed or difficult intubation, initial encounter; Z87.891 Personal history of nicotine dependence
CPT/HCPCS: 31500; 31720; 36415; 36556; 36600; 71045; 80048; 80053; 80202; 82803; 82947; 83605; 83735; 83880; 84100; 84484; 85025; 85610; 85730; 87040; 87147; 93005; 93010; 93308; 93321; 94002; 96361; 96374; 96375; 99285-25; C1751; C9113; J0171; J0610; J1170; J1644; J1815; J2060; J2250; J2405; J2543; J2704; J3010; J3370; J7030; J7050; J7060; J7070; J7120